=== PATIENT | male | born 1985 | race Two or more races ===

== ENCOUNTER 2023-02-15 17:27 | Emergency (ER) | payer OTHER ==
[~2023-02-15] VITALS: Ht 167.6 cm; Wt 57.6 kg
[~2023-02-15 17:27] MED LIST: IBUP800T27 PO
[2023-02-15] MEDS ORDERED: IBUPROFEN 800 MG TAB PO ONE (20:00)
[2023-02-15 20:01] VITALS: BP 102/60
== END 2023-02-15 20:32 | disposition home or self-care (01) ==
LOC: ER 17:27
DX: M79.671 Pain in right foot (principal); F17.210 Nicotine dependence, cigarettes, uncomplicated; W10.8XXA Fall (on) (from) other stairs and steps, initial encounter; Y93.89 Activity, other specified; Y92.89 Other specified places as the place of occurrence of the external cause; Y99.8 Other external cause status
CPT/HCPCS: 73630

== ENCOUNTER 2023-02-19 17:52 | Emergency (ER) | payer OTHER ==
[~2023-02-19] VITALS: Ht 167.6 cm; Wt 58.6 kg
[~2023-02-19 17:52] MED LIST changes: +IBUP-1456 PO; -IBUP800T27 PO
[2023-02-19 20:44] VITALS: BP 113/73
== END 2023-02-19 20:51 | disposition home or self-care (01) ==
LOC: ER 17:52
DX: S93.601A Unspecified sprain of right foot, initial encounter (principal); W10.8XXA Fall (on) (from) other stairs and steps, initial encounter; Y93.89 Activity, other specified; Y92.89 Other specified places as the place of occurrence of the external cause; Y99.8 Other external cause status